=== PATIENT | male | born 1985 | race Caucasian/White ===

== ENCOUNTER 2017-02-01 05:09 | Inpatient (IN) | payer MEDICAID ==
[~2017-02-01] VITALS: Ht 175.3 cm; Wt 78.0 kg
[2017-02-01] MEDS ORDERED: QUEtiapine FUMARATE 100 MG TABLET PO PRN (07:45)
[2017-02-01 08:05] VITALS: BP 130/82
[2017-02-01] MEDS ORDERED: GABA-531 PO (09:06)
[2017-02-01] MEDS ORDERED: PETROLATUM,WHITE 71 GM JELLY TP PRN (09:45)
[2017-02-01] MEDS ORDERED: BENZOCAINE/MENTHOL LOZENGE MM PRN (09:45)
[2017-02-01] MEDS ORDERED: MAGNESIUM HYDROXIDE SUSPENSION 30 ML UDCUP PO PRN (09:45)
[2017-02-01] MEDS ORDERED: ALBUTEROL SULFATE HFA 90 MCG/PUFF 8 GM INHALER IH PRN (09:45)
[2017-02-01] MEDS ORDERED: MAG HYDROX/AL HYDROX/SIMETH ES 30 ML SUSPENSION UDCUP PO PRN (09:45)
[2017-02-01] MEDS ORDERED: LOPERAMIDE HCL 2 MG CAPSULE PO PRN (09:45)
[2017-02-01] MEDS ORDERED: CloNIDine HCL 0.1 MG TABLET PO PRN (09:45)
[2017-02-01] MEDS ORDERED: BACITRACIN 28.4 GM OINTMENT TP PRN (09:45)
[2017-02-01] MEDS ORDERED: ACETAMINOPHEN 325 MG TABLET PO PRN (09:45)
[2017-02-01] MEDS ORDERED: ONDANSETRON HCL 4 MG TABLET PO PRN (09:45)
[2017-02-01] MEDS: GABAPENTIN 300 MG CAPSULE PO SCH ×2 (10:01→17:05)
[2017-02-01] MEDS: IBUPROFEN 600 MG TABLET PO PRN (10:37)
[2017-02-01] MEDS: DiphenhydrAMINE HCL 25 MG CAPSULE PO PRN (10:37)
[2017-02-01] MEDS: LORazepam 2 MG TABLET PO PRN (10:37)
[2017-02-01] MEDS: TRIAMCINOLONE 0.1% 15 GM OINTMENT TP SCH ×2 (13:00→21:10)
[2017-02-01] MEDS: TERBINAFINE HCL 1% 30 GM CREAM TP SCH (13:56)
[2017-02-01] MEDS: MAGNESIUM SULFATE 454 GM BOX TP SCH (13:56)
[2017-02-01 16:00] VITALS: BP 106/77
[2017-02-01] MEDS ORDERED: RisperiDONE 0.5 MG TABLET PO SCH (21:00)
[2017-02-01] MEDS ORDERED: OLANZapine 5 MG TABLET PO SCH (21:00)
[2017-02-02] VITALS (7 sets, daily range): BP systolic 118–145; BP diastolic 62–79
[2017-02-02] MEDS: IBUPROFEN 600 MG TABLET PO PRN (05:49)
[2017-02-02 08:26] LABS: BASOPHILS % (AUTO) 0.4 % (0.0-2.0); EOSINOPHILS % (AUTO) 3.6 % (1.0-6.0); HEMATOCRIT 43.3 % (41-53); HEMOGLOBIN 13.9 g/dL (13.5-17.5); LYMPHOCYTES # (AUTO) 1.7 K/uL (1.0-4.8); LYMPHOCYTES % (AUTO) 30.6 % (22.0-44.0); MEAN CORPUSCULAR HEMOGLOBIN 30.8 pg (26.0-34.0); MEAN CORPUSCULAR VOLUME 96 fL (80-100); MONOCYTES # (AUTO) 0.6 K/uL (0.1-1.0); NEUTROPHILS # (AUTO) 3.1 K/uL (1.8-7.7); NEUTROPHILS % (AUTO) 55.4 % (40.0-70.0); PLATELET COUNT (AUTO) 290 K/uL (150-450); RED BLOOD CELL COUNT(AUTO) 4.51 MIL/uL (4.50-5.90); RED CELL DISTRIBUTION WIDTH 14.4 % (11.5-14.5); WHITE BLOOD COUNT (AUTO) 5.7 K/uL (4.5-11.0)
[2017-02-02] MEDS: NICOTINE 21 MG/24 HOUR PATCH TD SCH (08:58)
[2017-02-02] MEDS: RisperiDONE 0.5 MG TABLET PO SCH ×3 (08:59→21:00)
[2017-02-02] MEDS: TERBINAFINE HCL 1% 30 GM CREAM TP SCH (08:59)
[2017-02-02] MEDS: GABAPENTIN 300 MG CAPSULE PO SCH ×2 (08:59→16:35)
[2017-02-02 09:00] LABS: ALANINE AMINOTRANSFERASE 41 U/L (12-78); ALBUMIN 3.7 g/dL (3.4-5.0); ANION GAP 11 mmol/L (8-16); ASPARTATE AMINOTRANSFERASE 32 U/L (15-37); BILIRUBIN,TOTAL 0.4 mg/dL (0.1-1.0); CALCIUM, TOTAL 8.5 mg/dL (8.8-10.5); CARBON DIOXIDE 25 mmol/L (22-29); CHLORIDE 101 mmol/L (98-107); CHOL/HDL RATIO 2.2 (4.2-7.3); CREATININE 1.05 mg/dL (0.60-1.30); GLOMERULAR FILTR. RATE CALC > 60 mL/min (>60); POTASSIUM 3.7 mmol/L (3.5-5.1); SODIUM SERUM 137 mmol/L (136-145); THYROID STIMULATING HORMONE 1.11 uIU/mL (0.36-3.74); TOTAL PROTEIN, SERUM 7.2 g/dL (6.4-8.2); UREA NITROGEN, BLOOD 12 mg/dL (7-18)
[2017-02-02] MEDS: TRIAMCINOLONE 0.1% 15 GM OINTMENT TP SCH ×4 (09:00→16:57)
[2017-02-02] MEDS: LORazepam 2 MG TABLET PO PRN ×2 (10:36→16:57)
[2017-02-02] MEDS: MAGNESIUM SULFATE 454 GM BOX TP SCH (10:37)
[2017-02-03 01:50] VITALS: BP 139/86
[2017-02-03] MEDS: ZOLPIDEM TARTRATE 10 MG TABLET PO PRN ×2 (01:57→20:36)
[2017-02-03 08:21] VITALS: BP 119/67
[2017-02-03] MEDS: GABAPENTIN 300 MG CAPSULE PO SCH ×2 (08:29→16:05)
[2017-02-03] MEDS: RisperiDONE 0.5 MG TABLET PO SCH ×3 (08:29→20:36)
[2017-02-03] MEDS: TRIAMCINOLONE 0.1% 15 GM OINTMENT TP SCH ×3 (08:30→16:05)
[2017-02-03] MEDS: NICOTINE 21 MG/24 HOUR PATCH TD SCH (08:30)
[2017-02-03] MEDS: LORazepam 2 MG TABLET PO PRN ×2 (08:36→15:47)
[2017-02-03] MEDS: TERBINAFINE HCL 1% 30 GM CREAM TP SCH (09:52)
[2017-02-03] MEDS: MAGNESIUM SULFATE 454 GM BOX TP SCH (09:52)
[2017-02-03] MEDS: IBUPROFEN 600 MG TABLET PO PRN (09:55)
[2017-02-03 11:24] LABS: HEPATITIS Bs ANTIGEN SCREEN P Negative (Negative); HEPATITIS C AB SCREEN <0.1 s/co ratio (0.0-0.9)
[2017-02-03 16:00] VITALS: BP 134/67
[2017-02-03] MEDS: DiphenhydrAMINE HCL 25 MG CAPSULE PO PRN (20:36)
[2017-02-04] MEDS: DiphenhydrAMINE HCL 25 MG CAPSULE PO PRN (06:28)
[2017-02-04 06:32] VITALS: BP 128/72
[2017-02-04 08:21] VITALS: BP 112/63
[2017-02-04] MEDS: RisperiDONE 0.5 MG TABLET PO SCH (09:00)
[2017-02-04] MEDS: TERBINAFINE HCL 1% 30 GM CREAM TP SCH (09:13)
[2017-02-04] MEDS: TRIAMCINOLONE 0.1% 15 GM OINTMENT TP SCH ×2 (09:13→13:17)
[2017-02-04] MEDS: NICOTINE 21 MG/24 HOUR PATCH TD SCH (09:13)
[2017-02-04] MEDS: MAGNESIUM SULFATE 454 GM BOX TP SCH (09:14)
[2017-02-04] MEDS: GABAPENTIN 300 MG CAPSULE PO SCH (09:14)
[2017-02-04] MEDS: LORazepam 2 MG TABLET PO PRN (09:14)
[2017-02-04] MEDS ORDERED: RISP.5 PO (14:14)
== END 2017-02-04 14:15 | disposition home or self-care (01) | DRG 753 ==
LOC: EDSTATUS 05:10 → B2S 07:53 → EDSTATUS 08:07 → B2S 02-02 12:48 → B3A 02-03 09:35
DX: F31.4 Bipolar disorder, current episode depressed, severe, without psychotic features (principal); R45.851 Suicidal ideations; G62.9 Polyneuropathy, unspecified; F19.90 Other psychoactive substance use, unspecified, uncomplicated; B35.3 Tinea pedis; K59.00 Constipation, unspecified; Z72.0 Tobacco use; L20.9 Atopic dermatitis, unspecified; G47.00 Insomnia, unspecified; Z91.14 Patient's other noncompliance with medication regimen
CPT/HCPCS: 80074; 82306; 83735; 84100; 84443